=== PATIENT | male | born 1985 | race African-American/Black ===

== ENCOUNTER 2023-03-26 20:25 | Emergency (ER) | payer SELFPAY ==
[~2023-03-26] VITALS: Ht 177.8 cm; Wt 73.0 kg
[2023-03-26] MEDS ORDERED: LORAZEPAM 2MG/ML CPJ IV STA (20:59)
[2023-03-26] MEDS ORDERED: HALOPERIDOL LACTATE 5MG/ML VIAL IM STA (20:59)
[2023-03-26] MEDS ORDERED: SODIUM CHLORIDE 0.9% 1,000 ML IV ONE (21:00)
[2023-03-26] MEDS: DIPHENHYDRAMINE 50MG/ML VIAL IV STA ×2 (21:12→21:32)
[2023-03-26 21:19] LABS: BASOPHILS % 0.9 % (0.0-2.0); EOSINOPHILS % 1.9 % (0.0-5.0); HEMATOCRIT. 47.7 % (42.0-52.0); HEMOGLOBIN. 15.7 g/dL (14.0-18.0); LYMPHOCYTES % 42.6 % (20.0-50.0); MEAN CORPUSCULAR HGB CONC 32.8 g/dL (31.0-37.0); MEAN CORPUSCULAR VOLUME 94.3 fL (80.0-94.0); MEAN PLATELET VOLUME 9.1 fl (7.4-10.4); MONOCYTES % 7.6 % (2.0-8.0); PLATELET 201 x1000/uL (130-400); RED BLOOD CELL COUNT 5.06 mill/uL (4.7-6.1); RED CELL DISTRIBUTION WIDTH 14.9 % (11.6-14.6); WHITE BLOOD COUNT 8.5 x1000/uL (4.5-11.0)
[2023-03-26 21:25] LABS: CHLORIDE 102 mEq/L (98-107); INDEX HEMOLYSI 3 (1-3); INDEX ICTERIC 1 (1-4); INDEX LIPEMIC 1 (1-3); POTASSIUM 3.4 mEq/L (3.5-5.1); SODIUM 142 mEq/L (136-145)
[2023-03-26 21:34] LABS: ACETAMINOPHEN <2 ug/mL ug/mL (10-30); ALANINE AMINOTRANSFERASE 54 IU/L (13-61); ALBUMIN 4.7 g/dL (3.4-5.0); ASPARTATE AMINOTRANSFERASE 29 IU/L (15-37); BILIRUBIN TOTAL 0.3 mg/dL (0.1-1.0); CALCIUM 9.4 mg/dL (8.5-10.1); CARBON DIOXIDE 12 mEq/L (21-32); CREATININE 1.1 mg/dL (0.6-1.3); ETHANOL BLOOD 38 mg/dL (<10); GLUCOSE 107 mg/dL (70-105); PROTEIN TOTAL 9.2 g/dL (6.0-8.3); UREA NITROGEN BLOOD 10 mg/dL (7-21)
[2023-03-26 21:57] LABS: TROPONIN I HIGH SENSITIVITY 7 ng/L (<78)
[2023-03-26 22:30] VITALS: O2SAT 98
[2023-03-27 00:16] VITALS: BP 132/87; PULSE 100; RESP 18; TEMP 98.5
[2023-03-27] MEDS ORDERED: NAPR500T7 MT (09:06)
== END 2023-03-27 00:16 | disposition home or self-care (01) ==
LOC: ER 20:25 → EDBD 20:25 → ER 03-27 00:16
DX: F16.10 Hallucinogen abuse, uncomplicated (principal); R41.82 Altered mental status, unspecified; R45.1 Restlessness and agitation
CPT/HCPCS: 80053; 80307; 80329; 80320; 85025; 84484; 36415; 71045; 70450; 93005; 96361; 96374; 96375; 99285; J1200; J2060; J7030; Z7610; G0480

== ENCOUNTER 2023-03-27 03:52 | Emergency (ER) | payer MEDICAID, OTHER ==
[~2023-03-27] VITALS: Ht 177.8 cm; Wt 77.0 kg
[2023-03-27 04:01] VITALS: TEMP 99.2; O2SAT 99
[2023-03-27 04:33] LABS: BASOPHILS % 0.4 % (0.0-2.0); EOSINOPHILS % 0.8 % (0.0-5.0); HEMATOCRIT. 42.8 % (42.0-52.0); HEMOGLOBIN. 14.3 g/dL (14.0-18.0); LYMPHOCYTES % 10.3 % (20.0-50.0); MEAN CORPUSCULAR HEMOGLOBIN 30.5 pg (28.0-32.0); MEAN CORPUSCULAR HGB CONC 33.4 g/dL (31.0-37.0); MEAN CORPUSCULAR VOLUME 91.2 fL (80.0-94.0); MEAN PLATELET VOLUME 8.5 fl (7.4-10.4); MONOCYTES % 11.3 % (2.0-8.0); NEUTROPHILS % 77.2 % (40.0-76.0); PLATELET 169 x1000/uL (130-400); RED BLOOD CELL COUNT 4.69 mill/uL (4.7-6.1); RED CELL DISTRIBUTION WIDTH 14.8 % (11.6-14.6); WHITE BLOOD COUNT 10.8 x1000/uL (4.5-11.0)
[2023-03-27 04:40] LABS: CHLORIDE 107 mEq/L (98-107); INDEX HEMOLYSI 1 (1-3); INDEX ICTERIC 1 (1-4); INDEX LIPEMIC 1 (1-3); POTASSIUM 3.6 mEq/L (3.5-5.1); SODIUM 140 mEq/L (136-145)
[2023-03-27 04:48] LABS: ACETAMINOPHEN <2 ug/mL ug/mL (10-30); ALANINE AMINOTRANSFERASE 49 IU/L (13-61); ALBUMIN 4.2 g/dL (3.4-5.0); ASPARTATE AMINOTRANSFERASE 32 IU/L (15-37); BILIRUBIN TOTAL 0.5 mg/dL (0.1-1.0); CALCIUM 8.9 mg/dL (8.5-10.1); CARBON DIOXIDE 25 mEq/L (21-32); ETHANOL BLOOD < 10 mg/dL (<10); GLUCOSE 115 mg/dL (70-105); PROTEIN TOTAL 7.9 g/dL (6.0-8.3); UREA NITROGEN BLOOD 10 mg/dL (7-21)
[2023-03-27] MEDS ORDERED: KETOROLAC 15MG/ML VIAL IM ONE (06:30)
[2023-03-27] MEDS: KETOROLAC 30MG/ML VIAL IM SCH ×2 (06:57→07:32)
[2023-03-27 07:32] VITALS: BP 140/94; PULSE 100; RESP 16
[2023-03-27 08:55] LABS: CLARITY URINE CLOUDY (CLEAR); COLOR URINE YELLOW (YELLOW); GLUCOSE URINE NEGATIVE (NEGATIVE); KETONES URINE NEGATIVE (NEGATIVE); LEUKOCYTE ESTERASE URINE NEGATIVE (NEGATIVE); NITRITE URINE NEGATIVE (NEGATIVE); OCCULT BLOOD URINE TRACE (NEGATIVE); PH URINE 5.5 (4.5-8.0); PROTEIN URINE NEGATIVE (NEGATIVE); SPECIFIC GRAVITY URINE 1.017 (1.005-1.030); UROBILINOGEN URINE 0.2 E.U./dL (0.2-1.0)
[2023-03-27] MEDS ORDERED: NAPR500T7 MT (09:06)
[2023-03-27 09:14] LABS: BACTERIA URINE FEW; RBC URINE NONE SEEN /hpf (0-2); URIC ACID CRYSTALS URINE 1+ /lpf; WBC URINE 0-2 /hpf (0-2); YEAST URINE NONE SEEN
[2023-03-27 09:16] LABS: SQUAMOUS EPITHELIAL CELL URINE RARE /lpf (RARE/1+)
[2023-03-27 09:27] LABS: *AMPHETAMINES SCREEN URINE NEGATIVE (NEGATIVE); *BARBITURATES SCREEN URINE NEGATIVE (NEGATIVE); *BENZODIAZEPINES SCREEN URINE NEGATIVE (NEGATIVE); *COCAINE SCREEN URINE NEGATIVE (NEGATIVE); CANNABINOID URINE SCREEN NEGATIVE (NEGATIVE); ECSTASY MDMA SCREEN URINE NEGATIVE (NEGATIVE); OPIATES URINE SCREEN NEGATIVE (NEGATIVE); PHENCYCLIDINE URINE SCREEN PRESUMTIVE POSITIVE (NEGATIVE)
== END 2023-03-27 10:05 | disposition home or self-care (01) ==
LOC: ER 03:52
DX: M25.572 Pain in left ankle and joints of left foot (principal)
CPT/HCPCS: 80053; 80305; 81003; 80307; 80329; 80320; 85025; 36415; 73610; 73630; 96372; 99284; J1885; Z7610; G0480